=== PATIENT | female | born 1990 | race Caucasian/White ===

== ENCOUNTER → 2017-01-27 | Outpatient (CLI) | payer BC | LOC: MW.CHOBGYN 08:55 | PROVIDERS: ATTEND Advanced Practice Midwife | DX: Z34.90 Encounter for supervision of normal pregnancy, unspecified, unspecified trimester (principal) | CPT/HCPCS: 87081 ==

== ENCOUNTER 2017-02-06 11:04 | Outpatient (CLI) | payer BC | END 2017-02-06 12:24 | disposition home or self-care (01) | LOC: MW.OBCHECK 11:04 → MW.OB 11:09 → MW.OBCHECK 12:24 | PROVIDERS: ATTEND Obstetrics & Gynecology | DX: Z34.93 Encounter for supervision of normal pregnancy, unspecified, third trimester (principal) | CPT/HCPCS: 36415; 59025; 81003; 82565; 83615; 84450; 84460; 84520; 84550; 85025; 87086 ==

== ENCOUNTER 2017-02-19 00:03 | Inpatient (IN) | payer BC ==
[2017-02-19] MEDS ORDERED: Butorphanol 1 MG/ML SDV IVPUSH PRN (00:21)
[2017-02-19] MEDS ORDERED: Sodium Chloride 0.9% 2.5 ML Syringe FLUSH PRN (00:21)
[2017-02-19] MEDS ORDERED: Water For Irrigation,Sterile 1,000 ML Container IRR PRN (00:21)
[2017-02-19] MEDS ORDERED: Sodium Chloride 0.9% 10 ML Syringe FLUSH PRN (00:21)
[2017-02-19] MEDS ORDERED: Misoprostol 200 MCG Tab PO PRN (00:21)
[2017-02-19] MEDS ORDERED: Nalbuphine 10 MG/1 ML Vial IVPUSH PRN (00:21)
[2017-02-19] MEDS ORDERED: Carboprost Tromethamine 250 MCG/1 ML Amp IM PRN (00:21)
[2017-02-19] MEDS ORDERED: Lidocaine 1% 50 ML MDV INJECT PRN (00:21)
[2017-02-19] MEDS ORDERED: Methylergonovine 0.2 MG/1 ML Amp IM PRN ×2 (00:21→01:20)
[2017-02-19] MEDS ORDERED: Oxytocin/Lactated Ringers 30 UNIT/500 ML BAG IV ONE (00:23)
[2017-02-19] MEDS ORDERED: Lactated Ringers 1,000 ML IV SCH (00:30)
[2017-02-19] MEDS ORDERED: oxyCODONE 5 MG Tab PO PRN (01:20)
[2017-02-19] MEDS ORDERED: Benzocaine/Menthol 20%-0.5% Spray 78 GM Cannister TOP PRN (01:20)
[2017-02-19] MEDS ORDERED: Docusate Sodium 100 MG Cap PO PRN (01:20)
[2017-02-19] MEDS ORDERED: Lanolin 100% Cream 7 GM Tube TOP PRN (01:20)
[2017-02-19] MEDS ORDERED: Bisacodyl 10 MG Supp RECTAL PRN (01:20)
[2017-02-19] MEDS ORDERED: Witch Hazel Medicated Pads 40/Jar TOP PRN (01:20)
[2017-02-19] MEDS ORDERED: Acetaminophen 500 MG Tab PO PRN (01:20)
[2017-02-19] MEDS ORDERED: Ibuprofen 800 MG Tab PO PRN (01:20)
--- NOTE | 2017-02-19 02:25 | OR ---
SURGEON: Gloria Diaz M.D. DATE OF PROCEDURE: 02/19/2017 PREOPERATIVE DIAGNOSES: 39 and 3/7th weeks intrauterine , active spontaneous labor, group B strep negative. POSTOPERATIVE DIAGNOSES: 39 and 3/7th weeks intrauterine , active spontaneous labor, group B strep negative. PROCEDURE: Term spontaneous vaginal delivery. ANESTHESIA: None. ESTIMATED BLOOD LOSS: Less than 300 mL. FINDINGS: Live born female, score 8 and 9. Weight is pending at the time of this dictation. The placenta was delivered spontaneously, Schultze intact with 3 vessels. There was an area of suspected old abruption and that was sent to Pathology. The perineum was intact. There were no cervical, vaginal sidewall, or rectal lacerations. COMPLICATIONS: None known. DISPOSITION: Mother and baby are in LDRP in good condition. BRIEF INDICATION: This is a 26-year-old female, G2, P1-0-0-1. She presents at 39 and 3/7th weeks' gestation in active spontaneous labor, 6 cm upon arrival on labor and delivery. She received IV fluids, laboratory studies were obtained, and anesthesia was notified of request for epidural, however, shortly thereafter she was 9+ cm and with an urge to push, therefore, she was allowed to push with artificial rupture of membranes performed at that time when she was out at a 4+ station. DESCRIPTION OF PROCEDURE: With the patient in dorsal lithotomy position, the patient pushed over to contractions to a 5+ station, at which time the head was delivered spontaneously and atraumatically over the perineum with support with subsequent delivery of the infant's shoulders and body without any difficulty. The infant was handed to the mother in the presence of the nurse attending delivery. The was a liveborn female, score 8 and 9, weight is pending at the time of this dictation. After the cord had ceased to pulsate, it was doubly clamped and cut. Pitocin was initiated after delivery of the to assist with delivery of the placenta which was delivered spontaneously, Schultze intact with 3 vessels. Again there was a darker area on the placenta and the placenta was fairly small and was sent to Pathology. Upon inspection of the pelvis and perineum, there were no periurethral, vaginal sidewall, cervical, rectal, or perineal lacerations. EBL was less than 300 mL. There were no known complications. Mother and are in LDRP in good condition. I performed this delivery while covering for Dr. Cortes and the patient's primary provider is Meka Parra CNM. NORMA GUNTER /[id number]
[2017-02-19 08:17] VITALS: BP 121/71
--- NOTE | 2017-02-19 09:45 | PCM.PNPP ---
- General Info Date of Service: 02/19/17 Functional Status: Reports: pain controlled, tolerating diet, ambulating, urinating - Review of Systems General: Reports: No Symptoms HEENT: Reports: no symptoms Pulmonary: Reports: no symptoms Cardiovascular: Reports: No Symptoms Gastrointestinal: Reports: No symptoms Genitourinary: Reports: no symptoms Musculoskeletal: Reports: no symptoms Skin: Reports: no symptoms Neurological: Reports: No Symptoms Psychiatric: Reports: no symptoms - Patient Data Vital Signs - most recent: Last Vital Signs Temp 36.8 C 02/19/17 08:16 Pulse 85 02/19/17 08:16 Resp 18 02/19/17 08:16 BP 121/71 02/19/17 08:16 Pulse Ox 98 02/19/17 05:15 Weight - most recent: 90.718 kg I&O - last 24 hours: Intake & Output 02/18/17 02/19/17 02/19/17 22:59 06:59 14:59 Intake Total 1000 Balance 1000 Lab Results - last 24 hrs: Laboratory Results - last 24 hr 02/19/17 02/19/17 Range/Units 00:32 00:32 WBC 13.87 H (4.0-11.0) K/uL RBC 3.60 L (4.30-5.90) M/uL Hgb 11.4 L (12.0-16.0) g/dL Hct 33.7 L (36.0-46.0) % MCV 93.6 (80.0-98.0) fL MCH 31.7 (27.0-32.0) pg MCHC 33.8 (31.0-37.0) g/dL RDW Std Deviation 44.9 (28.0-62.0) fl RDW Coeff of Emma 14 (11.0-15.0) % Plt Count 241 (150-400) K/uL MPV 10.70 (7.40-12.00) fL Blood Type A POSITIVE Antibody Screen NEGATIVE Med Orders - Current: Current Medications Acetaminophen (Tylenol Extra Strength) 1,000 mg PO Q4H PRN PRN Reason: Pain Benzocaine/Menthol (Dermoplast Pain Relief 20%-0.5% [place]) 78 gm TOP ASDIRECTED PRN PRN Reason: Perineal Comfort Measure Bisacodyl (Dulcolax) 10 mg RECTAL .ONCE PRN PRN Reason: Constipation Docusate Sodium (Colace) 100 mg PO BID PRN PRN Reason: Constipation Emollient Ointment (Lansinoh Hpa) 0 gm TOP ASDIRECTED PRN PRN Reason: Sore Nipples Ibuprofen (Motrin) 800 mg PO Q6H PRN PRN Reason: Pain Methylergonovine Maleate (Methergine) 0.2 mg IM .ONCE PRN PRN Reason: Excessive Vaginal Bleeding Oxycodone HCl (Oxycodone) 5 mg PO Q2H PRN PRN Reason: Pain Witch Una (Tucks) 1 pad TOP ASDIRECTED PRN PRN Reason: comfort care Discontinued Medications Butorphanol Tartrate (Stadol) 1 mg IVPUSH Q1H PRN PRN Reason: Pain Carboprost Tromethamine (Hemabate Ds) 250 mcg IM ASDIRECTED PRN PRN Reason: Post Hemorrhage Lactated Ringer's (Ringers, Lactated) 1,000 mls @ 150 mls/hr IV ASDIRECTED BANDAR Last Admin: 02/19/17 00:30 Dose: 150 mls/hr Oxytocin/Lactated Ringer's (Pitocin In Lr 30 Units/500 Ml) 30 unit in 500 mls @ 500 mls/hr IV ONETIME ONE PRN Reason: 500 MUNITS/MIN Stop: 02/19/17 01:22 Last Admin: 02/19/17 01:06 Dose: 500 munits/min, 500 mls/hr Lidocaine HCl (Xylocaine 1%) 50 ml INJECT .ONCE PRN PRN Reason: Laceration repair Methylergonovine Maleate (Methergine) 0.2 mg IM ASDIRECTED PRN PRN Reason: Post Hemorrhage Misoprostol (Cytotec) 200 mcg PO .ONCE PRN PRN Reason: Post Hemorrhage Nalbuphine HCl (Nubain) 10 mg IVPUSH Q1H PRN PRN Reason: Pain (severe 7-10) Stop: 02/19/17 02:22 Sodium Chloride (Saline Flush) 10 ml FLUSH ASDIRECTED PRN PRN Reason: Keep Vein Open Sodium Chloride (Saline Flush) 2.5 ml FLUSH ASDIRECTED PRN PRN Reason: Keep Vein Open Sterile Water (Sterile Water For Irrigation) 1,000 ml IRR ASDIRECTED PRN PRN Reason: delivery - Interaction Disposition, : [facility] to Nursery (waxer operator discussed ambiguous genitalia, suspected congenital adrenal hyperplasia, baby being transferred to [place]) Infant Interaction: Not Applicable Feeding: Attempted ; Nursed Fair/Poor Support Person: - Recovery Exam Fundal Tone: Firm Fundal Level: 1 Fingerbreadths Below Umbilicus Fundal Placement: Midline Lochia Amount: Scant Lochia Color: Rubra/Red Perineum Description: Intact, Minimal Bruising/Swelling Episiotomy/Laceration: None Bladder Status: Voiding - Exam General: alert, oriented Lungs: Normal respiratory effort Abdomen: soft, no tenderness, no distension Extremities: no edema Skin: warm, dry, intact Neurological: no new focal deficit Psy/Mental Status: alert, normal affect, normal mood - Problem List & Annotations (1) Vaginal delivery SNOMED Code(s): 244886233 Code(s): O80 - ENCOUNTER FOR FULL-TERM UNCOMPLICATED DELIVERY Status: Acute Current Visit: Yes - Problem List Review Problem List Initiated/Reviewed/Updated: Yes - My Orders Last 24 Hours: My Active Orders 02/19/17 00:21 Heart Tones [RC] CONTINUOUS Non Stress Test [RC] PER UNIT ROUTINE May Shower [RC] ASDIRECTED Notify Provider [RC] PRN Up ad Liv [RC] ASDIRECTED Vaginal Exam [RC] PRN Vital Signs [RC] PER UNIT ROUTINE 02/19/17 01:20 Patient Status [ADT] Routine May Shower [RC] ASDIRECTED Up ad Liv [RC] ASDIRECTED Vital Signs [RC] PER UNIT ROUTINE Acetaminophen [Tylenol Extra Strength] 1,000 mg PO Q4H PRN Benzocaine/Menthol [Dermoplast Pain Relief 20%-0.5% [place]] 78 gm TOP ASDIRECTED PRN Bisacodyl [Dulcolax] 10 mg RECTAL .ONCE PRN Docusate Sodium [Colace] 100 mg PO BID PRN Ibuprofen [Motrin] 800 mg PO Q6H PRN Lanolin [Lansinoh HPA] See Dose Instructions TOP ASDIRECTED PRN Methylergonovine [Methergine] 0.2 mg IM .ONCE PRN Witch Una [Tucks] 1 pad TOP ASDIRECTED PRN oxyCODONE 5 mg PO Q2H PRN Assess Lochia [WOMSER] Per Unit Routine Assess Uterine Involution [WOMSER] Per Unit Routine Peripheral IV Discontinue [OM.PC] Routine Resuscitation Status Routine 02/19/17 01:21 Perineal Care [OM.PC] Per Unit Routine 02/19/17 09:38 CBC W/O DIFF,HEMOGRAM [HEME] Urgent 02/19/17 Breakfast Regular Diet [DIET] 02/20/17 05:11 HEMOGLOBIN/HEMATOCRIT,HH [HEME] Timed - Assessment Assessment:: PPD#0 after , stable, minimal lochia, denies pain. Suspected congenital adrenal hyperplasia of the , baby will be transferred to [place], therefore patient would like to be discharged, CBC pending. - Plan Plan:: Reviewed travel precautions and precautions, dismiss to home today, encouraged rest when able as baby will be in hospital in [place], she will try to take vitamins, which to this point have made her nauseated.
== END 2017-02-19 13:15 | disposition home or self-care (01) | DRG 560 ==
LOC: MW.OB 00:03 → MW.OBCHECK 00:03 → MW.OB 00:21 → OBSVTOIN 01:02
PROVIDERS: ADMIT Obstetrics & Gynecology; ATTEND Obstetrics & Gynecology
PROC: 10E0XZZ Delivery of Products of Conception, External Approach (ICD-10-PCS; principal; 2017-02-19)
PROC: 10907ZC Drainage of Amniotic Fluid, Therapeutic from Products of Conception, Via Natural or Artificial Opening (ICD-10-PCS; 2017-02-19)
DX: O80 Encounter for full-term uncomplicated delivery (principal); Z3A.39 39 weeks gestation of pregnancy; Z37.0 Single live birth
CPT/HCPCS: 36415; 59025; 85027; 86850; 86900; 86901; 88307; J7120